=== PATIENT | male | born 2005 | race Hispanic/Latino ===

== ENCOUNTER 2023-09-13 16:17 | Emergency (ER) | payer SELFPAY ==
[2023-09-13] MEDS ORDERED: Ketorolac Tromethamine 30 MG (1 mL) VIAL ONE (16:55)
[2023-09-13 17:13] LABS: #Basophils 0.05 10x3/uL (0.0-0.2); %Basophils 0.4 % (0.0-1.0); %Eosinophils 0.5 % (0.0-10.0); %Lymphocytes 11.7 % (28.0-48.0); %Monocytes 5.5 % (0.0-4.0); %Neutrophils 81.4 % (31.0-61.0); Hematocrit 47.7 % (42.0-52.0); Hemoglobin 16.9 g/dL (14.0-18.0); Mean Corpuscular HGB CONC 35.4 g/dL (32.0-36.0); Mean Corpuscular Hemoglobin 30.2 pg (25.0-35.0); Mean Corpuscular Volume 85.2 fL (78.0-98.0); Mean Platelet Volume 11.5 fL (7.4-10.4); Platelet Count 346 10x3/uL (130-400)
[2023-09-13 17:32] LABS: ALT (SGPT) 32 U/L (8-55); AST (SGOT) 22 U/L (10-45); Albumin 5.4 g/dL (3.5-5.0); Alkaline Phosphatase 118 U/L (50-130); Anion Gap 19 mmol/L (10-20); BUN (Urea Nitrogen) 22 mg/dL (8.4-21.0); Bilirubin, Total 0.9 mg/dL (0.2-1.2); Calc. Creatinine Clearance 0 mL/min (70-130); Calcium 11.3 mg/dL (7.8-10.44); Carbon Dioxide 20 mmol/L (22-29); Chloride 104 mmol/L (98-107); Estimated GFR 47; Globulin 3.3 g/dL (2.4-3.5); Glucose 108 mg/dL (70-105); Lipase 17 U/L (8-78); Potassium 3.9 mmol/L (3.5-5.1); Protein, Total 8.7 g/dL (6.0-8.3); Sodium 139 mmol/L (136-145)
[2023-09-13 18:12] LABS: Bilirubin Negative (Negative); Blood, Urine Negative (Negative); CAUTI Indications for Culture Pelvic or flank pain; Clarity Turbid (Clear); Glucose, Urine (Dipstick) Normal (Negative); Ketone, Urine Trace mg/dL (Negative); Leukocyte Negative Leu/uL (Negative); Nitrite Negative (Negative); Protein, Urine (Dipstick) 70 mg/dL (Neg-Trace); RBC/HPF 0-3 HPF (0-3); Specific Gravity, Urine 1.015 (1.002-1.036); Squamous Epithelial 0-3 HPF (0-3); Urobilinogen Normal mg/dL (Less than 2)
[2023-09-13 18:22] LABS: Bacteria/HPF 1+ HPF (None Seen)
[2023-09-13 18:24] LABS: Urine Culture Reflex No No
== END 2023-09-13 18:57 | disposition home or self-care (01) ==
LOC: ERS 16:17
DX: N17.9 Acute kidney failure, unspecified (principal); E86.0 Dehydration; F17.290 Nicotine dependence, other tobacco product, uncomplicated; Z55.6 Problems related to health literacy
CPT/HCPCS: 36415; 71045; 80053; 81001; 83690; 85025; 93005; 96361; 96374; J1885